=== PATIENT | male | born 1990 | race Hispanic/Latino ===

== ENCOUNTER 2022-08-25 09:54 | Emergency (ER) | payer OTHER ==
[~2022-08-25] VITALS: Ht 175.3 cm; Wt 77.3 kg
[2022-08-25] MEDS ORDERED: ERYTHROMYCIN O3.5 GM OS (11:53)
[2022-08-25 12:40] VITALS: BP 131/79
== END 2022-08-25 12:46 | disposition home or self-care (01) | DRG 125 ==
LOC: ED 09:54
DX: H10.9 Unspecified conjunctivitis (principal)